=== PATIENT | female | born 1990 | race Caucasian/White ===

== ENCOUNTER 2024-06-27 23:54 | Emergency (ER) | payer SELFPAY ==
[2024-06-27 23:57] VITALS: BP 174/94; PULSE 92; TEMP 36.9; O2SAT 98; BMI 34.0
--- NOTE | 2024-06-28 00:12 | ED.EAR1 ---
HPI - Ear Problem General Chief complaint: Ear Stated complaint: ear pain Time Seen by Provider: 06/28/24 00:02 Source: patient Mode of arrival: walk-in Limitations: no limitations History of Present Illness HPI Narrative: 33-year-old female presents for left ear pain. It started a few days ago and has been getting worse. The patient was seen at another emergency department and they started her on Zithromax. She took the first 2 pills today but she states that they did not give her anything for pain. No drainage or trauma. Related Data Home Medications ?Medication ?Instructions ?Recorded ?Confirmed No Known Home Medications 06/28/24 06/28/24 Previous Rx's ?Medication ?Instructions ?Recorded acetaminophen 300 mg-codeine 30 mg 1 tab PO Q6H PRN pain 5 days #20 06/28/24 tablet tabs ibuprofen 800 mg tablet 800 mg PO Q8H PRN pain #20 tabs 06/28/24 Allergies Allergy/AdvReac Type Severity Reaction Status Date / Time amoxicillin Allergy Hives Verified 06/28/24 00:03 Review of Systems ROS Narrative A ten point review of systems is negative except as noted above. PFSH PFSH Social History Little interest or pleasure in doing things: not at all Feeling down, depressed, or hopeless: not at all Exam Narrative Exam Narrative: Nurses note and vital signs reviewed and patient is not hypoxic. General: The patient appears uncomfortable. Skin: Warm, dry, no pallor noted. There is no rash noted. Head: Normocephalic, atraumatic Eye: Normal conjunctiva, no drainage Ears, Nose, Mouth, and Throat: oral mucosa is moist. Nares patent. Right TM and external canal are normal. Left external canal is normal but the left TM is erythematous with a distorted light reflex. Cardiovascular: Regular Rate and Rhythm Respiratory: Patient is in no distress, no accessory muscle use Back: non-tender GI: Nontender Musculoskeletal: The patient has no evidence of calf tenderness, no pitting edema, symmetrical pulses noted bilaterally Neurological: A&O, normal speech Psychiatric: Cooperative Constitutional Vital Signs, click to edit/add: Last Vital Signs Temp 98.5 F 06/27/24 23:57 Pulse 92 H 06/27/24 23:57 Resp 18 06/27/24 23:57 BP 174/94 H 06/27/24 23:57 Pulse Ox 98 06/27/24 23:57 O2 Del Method Room Air 06/27/24 23:57 Course Vital Signs Vital signs: Vital Signs Temperature 98.5 F 06/27/24 23:57 Pulse Rate 92 H 06/27/24 23:57 Respiratory Rate 18 06/27/24 23:57 Blood Pressure 174/94 H 06/27/24 23:57 Pulse Oximetry 98 06/27/24 23:57 Oxygen Delivery Method Room Air 06/27/24 23:57 Temperature 98.5 F 06/27/24 23:57 Pulse Rate 92 H 06/27/24 23:57 Respiratory Rate 18 06/27/24 23:57 Blood Pressure 174/94 H 06/27/24 23:57 Pulse Oximetry 98 06/27/24 23:57 Oxygen Delivery Method Room Air 06/27/24 23:57 Medical Decision Making MDM Narrative Medical decision making narrative: My clinical impression is that she has otitis media. She has already started her antibiotic but was provided pain medication here including ibuprofen and Tylenol 3 and given prescriptions for both of those as well. Treatment diagnosis and follow-up were discussed with the patient. The TM is intact. Differential Diagnosis Differential Diagnosis: Otitis media, otitis externa Discharge Plan Discharge Chief Complaint: Ear Clinical Impression: Otitis media Patient Disposition: Home, Self-Care Time of Disposition Decision: 00:10 Condition: Good Mode of Transportation: Private Vehicle Prescriptions / Home Meds: New ibuprofen 800 mg tablet 800 mg PO Q8H PRN (Reason: pain) Qty: 20 0RF acetaminophen-codeine 300-30 mg tablet 1 tab PO Q6H PRN (Reason: pain) 5 Days Qty: 20 0RF No Action No Known Home Medications Print Language: Georgian Instructions: Ear Infection (ED) Referrals: Niall Reddy MD [Primary Care Provider] - 1 week
[2024-06-28] MEDS: IBUPROFEN 400 MG TABLET 800 MG PO (00:21)
[2024-06-28] MEDS: ACETAMINOPHEN 300 MG/ 30 MG CODEINE TABLET 1 TAB PO (00:22)
== END 2024-06-28 00:30 | disposition home or self-care (01) ==
PROVIDERS: Emergency Provider Emergency Medicine; PCP Family Medicine
DX: H66.92 Otitis media, unspecified, left ear (principal)
CPT/HCPCS: 99283